=== PATIENT | male | born 1950 | race Caucasian/White ===

== ENCOUNTER 2023-12-07 16:54 | Emergency (ER) | payer OTHER ==
[~2023-12-07 16:54] MED LIST: Iopamidol 370 76% 100 ML VIAL ONE
[2023-12-07 18:00] LABS: #Basophils 0.1 thou/uL (0.0-0.2); #Eosinphils 0.2 thou/uL (0.0-0.7); #Lymphocytes 1.7 thou/uL (1.20-3.40); #Monocytes 0.7 thou/uL (0.11-0.59); %Basophils 1.1 % (0.0-1.0); %Eosinophils 2.7 % (0.0-10.0); %Lymphocytes 19.2 % (21.0-51.0); %Monocytes 8.4 % (0.0-10.0); %Neutrophils 68.6 % (42.0-75.0); Hematocrit 45.8 % (42.0-52.0); Hemoglobin 15.6 g/dL (14.0-18.0); Mean Corpuscular Hemoglobin 30.5 pg (27.0-31.0); Mean Corpuscular Volume 89.7 fl (78.0-98.0); Mean Platelet Volume 8.1 fL (7.4-10.4); Platelet Count 201 10x3/uL (130-400); RBC Distribution Width 12.2 % (11.5-14.5); Red Blood Cell (RBC) Count 5.11 mill/uL (4.70-6.10); White Blood Cell (WBC) Count 8.8 10x3/uL (4.8-10.8)
[2023-12-07 18:11] LABS: Troponin I Less than 0.010 ng/mL (< 0.028)
[2023-12-07 18:20] LABS: ALT (SGPT) 17 U/L (8-55); AST (SGOT) 18 U/L (5-34); Albumin 3.9 g/dL (3.4-4.8); Alkaline Phosphatase 60 U/L (40-110); Anion Gap 10 mmol/L (10-20); BUN (Urea Nitrogen) 24 mg/dL (8.4-25.7); Bilirubin, Total 0.3 mg/dL (0.2-1.2); Calc. Creatinine Clearance 0 mL/min (70-130); Calcium 9.1 mg/dL (7.8-10.44); Carbon Dioxide 23 mmol/L (23-31); Chloride 108 mmol/L (98-107); Estimated GFR 66; Globulin 2.9 g/dL (2.4-3.5); Glucose 89 mg/dL (83-110); Potassium 4.4 mmol/L (3.5-5.1); Protein, Total 6.8 g/dL (5.8-8.1); Sodium 137 mmol/L (136-145)
[2023-12-07 18:27] LABS: Prothrombin Time 13.4 sec (12.0-14.7)
[2023-12-07] MEDS ORDERED: Aspirin Chewable 81 MG TAB ONE (18:30)
[2023-12-08] MEDS ORDERED: Aspirin 325 MG TAB PO SCH (06:00)
[2023-12-08] MEDS ORDERED: Lisinopril 5 MG TAB PO SCH (06:00)
[2023-12-08] MEDS ORDERED: Levothyroxine Sodium 50 MCG TAB PO SCH (06:00)
== END 2023-12-08 14:28 | disposition short-term general hospital (02) ==
LOC: EEVIPCON 16:54 → NAV ERS 16:54
DX: R42 Dizziness and giddiness (principal); I10 Essential (primary) hypertension; E03.9 Hypothyroidism, unspecified; Z87.891 Personal history of nicotine dependence; Z79.899 Other long term (current) drug therapy
CPT/HCPCS: 70450; 70496; 80053; 84484; 85025; 85610; 85730; 93005; Q9967